=== PATIENT | female | born 1990 | race American Indian/Alaskan Native ===

== ENCOUNTER 2019-01-30 20:48 | Emergency (ER) | payer SELFPAY ==
[2019-01-30 20:59] VITALS: BP 110/64
--- NOTE | 2019-01-30 21:50 | Emergency Department Report ---
Blank Doc - Documentation Documentation: This is a 28-year-old female that presents with left upper arm itching with re dness and swelling. Stated started with small and increased in size from today. Denies any angioedema. Denies any CÉSAR. This initial assessment/diagnostic orders/clinical plan/treatment(s) is/are spencer bject to change based on patient's health status, clinical progression and re- assessment by fellow clinical providers in the ED. Further treatment and workup at subsequent clinical providers discretion. Patient/guardians urged not to elope from the ED as their condition may be serious if not clinically assessed and managed. Initial orders include: 1- Patient sent to [facility] for further evaluation and treatment 2- outlined the redness and rash
== END 2019-01-30 23:48 | disposition left against medical advice (07) ==
LOC: ED 20:48
DX: L29.9 Pruritus, unspecified (principal); Z53.21 Procedure and treatment not carried out due to patient leaving prior to being seen by health care provider

== ENCOUNTER 2019-11-13 00:11 | Outpatient (CLI) | payer SELFPAY ==
[2019-11-13] MEDS ORDERED: LACTATED RINGERS 1,000 ML IV SCH (01:00)
[2019-11-13 01:29] VITALS: BP 101/55
[2019-11-13 02:01] LABS: Bacteria,Urine 1+ /HPF (Negative); Bilirubin,Urine NEG (Negative); Blood,Urine NEG (Negative); Color,Urine Straw (Yellow); Mucus,Urine FEW /HPF; Protein,Urine <15 mg/dL mg/dL (Negative); Urobilinogen,Urine < 2.0 mg/dL (<2.0)
== END 2019-11-13 03:44 | disposition home or self-care (01) ==
LOC: TRG 00:11
PROVIDERS: ATTEND Obstetrics & Gynecology
DX: O26.892 Other specified pregnancy related conditions, second trimester (principal); R10.2 Pelvic and perineal pain; Z3A.26 26 weeks gestation of pregnancy
CPT/HCPCS: 59025; 81001; 87086